=== PATIENT | male | born 1990 | race Caucasian/White ===

== ENCOUNTER → 2020-12-19 15:27 | Outpatient (BNVA) | payer OTHER, SELFPAY | PROVIDERS: Referring Provider Nurse Practitioner Family; Visit Provider Internal Medicine | DX: E03.9 Hypothyroidism, unspecified (principal); E10.65 Type 1 diabetes mellitus with hyperglycemia; E16.0 Drug-induced hypoglycemia without coma; T38.3X5A Adverse effect of insulin and oral hypoglycemic [antidiabetic] drugs, initial encounter | CPT/HCPCS: 99205 ==

== ENCOUNTER → 2021-09-27 15:24 | Outpatient (BNVA) | payer OTHER, SELFPAY | PROVIDERS: PCP Nurse Practitioner Family; Visit Provider Internal Medicine | DX: E10.65 Type 1 diabetes mellitus with hyperglycemia (principal); E03.9 Hypothyroidism, unspecified; E16.0 Drug-induced hypoglycemia without coma; T38.3X5A Adverse effect of insulin and oral hypoglycemic [antidiabetic] drugs, initial encounter; Z79.4 Long term (current) use of insulin | CPT/HCPCS: 99214 ==

== ENCOUNTER 2021-09-27 15:59 | Outpatient (CLI) | payer OTHER, SELFPAY ==
[2021-09-27 16:47] LABS: Estmated Average Glucose 189; Hemoglobin A1C 8.2 % (4.0-6.0)
[2021-09-27 17:36] LABS: Alanine Aminotransferase 87 U/L (0-41); Albumin Level 4.1 g/dL (3.5-5.2); Alkaline Phosphatase 88 IU/L (40-130); Anion Gap 14.8 (5-19); Aspartate Amino Transferase 50 U/L (0-40); Blood Urea Nitrogen 18 mg/dL (6-20); Calcium 8.6 mg/dL (8.5-10.5); Carbon Dioxide 27 mmol/L (22-29); Chloride 103 mmol/L (98-107); Chol HDL Ratio 2.75 mg/dL (1.0-5.00); Cholesterol 179 mg/dL (0-200); Globulin 2.6 g/dL (1.3-4.6); Glomerular Filtration Rate 98.4 mL/min (90-130); Glucose 54 mg/dL (65-115); HDL Cholesterol 65 mg/dL (60-100); LDL Cholesterol Calculated 87 mg/dL (50-129); LDL HDL Ratio 1.34 RATIO (0.00-3.22); Osmolality Calculated 291 mOsm/kg (285-295); Potassium 3.8 mmol/L (3.5-5.1); Sodium 141 mmol/L (136-145); Thyroid Stimulating Hormone 8.91 uIU/mL (0.27-4.20); Total Bilirubin 0.2 mg/dL (0.15-1.2); Total Protein 6.7 g/dL (6.6-8.7); Triglycerides 134 mg/dL (0-150)
[2021-09-27 19:52] LABS: Free T4 Free Thyroxine 0.86 ng/dL (0.82-1.77)
== END 2021-09-27 16:00 | disposition home or self-care (01) ==
PROVIDERS: PCP Nurse Practitioner Family; Visit Provider Internal Medicine
DX: E03.9 Hypothyroidism, unspecified (principal); E10.65 Type 1 diabetes mellitus with hyperglycemia
CPT/HCPCS: 80053; 80061; 83036; 84439; 84443

== ENCOUNTER → 2021-10-11 18:15 | Outpatient (BNVA) | payer OTHER, SELFPAY | PROVIDERS: Visit Provider Registered Nurse Neonatal Intensive Care | DX: M79.641 Pain in right hand (principal); W22.09XA Striking against other stationary object, initial encounter | CPT/HCPCS: 73130 ==

== ENCOUNTER → 2021-10-17 10:51 | Outpatient (BNVA) | payer OTHER, SELFPAY | PROVIDERS: Referring Provider Registered Nurse Neonatal Intensive Care; Visit Provider Physician Assistant | DX: S92.321D Displaced fracture of second metatarsal bone, right foot, subsequent encounter for fracture with routine healing (principal); X58.XXXD Exposure to other specified factors, subsequent encounter | CPT/HCPCS: 73130 ==

== ENCOUNTER 2021-10-17 14:40 | Outpatient (CLI) | payer OTHER, SELFPAY | END 2021-10-17 14:41 | disposition home or self-care (01) | LOC: SPT 14:43 | PROVIDERS: Visit Provider Physician Assistant | DX: Z46.89 Encounter for fitting and adjustment of other specified devices (principal); S62.339A Displaced fracture of neck of unspecified metacarpal bone, initial encounter for closed fracture; X58.XXXA Exposure to other specified factors, initial encounter | CPT/HCPCS: 97760; L3807 ==

== ENCOUNTER → 2021-10-19 15:30 | Outpatient (BNVA) | payer OTHER, SELFPAY | PROVIDERS: Visit Provider Nurse Practitioner Family | DX: Z20.822 Contact with and (suspected) exposure to COVID-19 (principal); R68.89 Other general symptoms and signs | CPT/HCPCS: 87400; 87635 ==

== ENCOUNTER → 2021-11-14 15:51 | Outpatient (BNVA) | payer OTHER, SELFPAY | PROVIDERS: Visit Provider Physician Assistant | DX: S62.300A Unspecified fracture of second metacarpal bone, right hand, initial encounter for closed fracture (principal); X58.XXXA Exposure to other specified factors, initial encounter | CPT/HCPCS: 73130 ==

== ENCOUNTER 2021-11-29 06:00 | Outpatient (RCR) | payer OTHER, SELFPAY | END 2021-12-11 23:59 | disposition home or self-care (01) | LOC: TOT 06:00 | PROVIDERS: Referring Provider Physician Assistant; Visit Provider Physician Assistant | DX: S62.600D Fracture of unspecified phalanx of right index finger, subsequent encounter for fracture with routine healing (principal) | CPT/HCPCS: 97110; 97165; 97530 ==

== ENCOUNTER 2021-12-12 06:00 | Outpatient (RCR) | payer OTHER, SELFPAY | END 2022-01-08 23:59 | disposition home or self-care (01) | LOC: TOT 06:00 | PROVIDERS: Referring Provider Physician Assistant; Visit Provider Physician Assistant | DX: S62.600D Fracture of unspecified phalanx of right index finger, subsequent encounter for fracture with routine healing (principal) | CPT/HCPCS: 97530 ==

== ENCOUNTER 2022-01-09 06:00 | Outpatient (RCR) | payer OTHER, SELFPAY | END 2022-02-08 23:59 | disposition home or self-care (01) | LOC: TOT 06:00 | PROVIDERS: Referring Provider Physician Assistant; Visit Provider Physician Assistant | DX: S62.600D Fracture of unspecified phalanx of right index finger, subsequent encounter for fracture with routine healing (principal); X58.XXXD Exposure to other specified factors, subsequent encounter | CPT/HCPCS: 97168 ==

== ENCOUNTER → 2023-05-03 12:26 | Outpatient (BNVA) | payer SELFPAY | PROVIDERS: PCP Nurse Practitioner Family; Visit Provider Nurse Practitioner Family | DX: E10.65 Type 1 diabetes mellitus with hyperglycemia (principal) | CPT/HCPCS: 80053; 80061; 82043; 83036; 84439; 84443; 85025 ==

== ENCOUNTER 2023-08-29 00:30 | Emergency (ER) | payer SELFPAY ==
[2023-08-29 00:35] VITALS: BP 137/88; PULSE 60; RESP 20; TEMP 36.6; O2SAT 98; BMI 27.3
--- NOTE | 2023-08-29 00:39 | ED_ITS ---
HPI - Abdominal Pain General: Chief Complaint: Abdominal Pain Stated Complaint: ABD Pain Possible Hernia Time Seen by Provider: 08/29/23 00:31 Source: patient Mode of arrival: ambulatory Limitations: no limitations History of Present Illness: 32-year-old male states he is lifting at work on Saturday like he may have pulled a muscle got a hernia he states since then he has had some pain around his umbilicus states pain increased this evening states its worse with movement and palpation he states at rest pain is minimal he states pain is currently 2 out of 10 denies any vomiting or diarrhea Associated Symptoms: Denies chills, diarrhea, dysuria, fever(s), nausea and vomiting Review of Systems Const: Denies: fever(s), chills, body aches or change in appetite ENMT: Denies: throat pain or dental pain Card: Denies: chest pain Resp: Denies: dyspnea GI: Reports: abdominal pain; Denies: nausea, vomiting or diarrhea : Denies: dysuria Musc: Denies: neck pain or back pain Skin/Breast: Denies: rash Neuro: Denies: headache(s) PFSH ED PFSH: Medical History Cholecystectomy planned Diabetes type I History of cholelithiasis Hypothyroid Family History Mother Hypothyroidism Grandmother Hypothyroidism Other Cancer Social History Smoking and tobacco/nicotine status: never used tobacco/nicotine Second hand smoke exposure: No Alcohol intake: current Alcohol intake frequency: holidays/special occasions only Substance/Drug Use: never Marital status: Single Special mike needs: Yes (no blood products) Agree to transfusion: No Physical Exam Const: COMMON NORMALS: no acute distress, patient oriented x3 and healthy appearing HENMT: COMMON NORMALS: normocephalic and atraumatic HEAD & SCALP: normocephalic and atraumatic Neck/C-Spine: COMMON NORMALS: full ROM and supple Chest: COMMONS NORMALS: normal inspection of the chest Resp: COMMON NORMALS: normal respiratory effort Cardio: COMMON NORMALS: regular rate RATE: regular rate GI: COMMON NORMALS: Normal to inspection, nondistended, normoactive bowel sounds present, Soft to palpation and no masses PALPATION: Yes Soft to palpation OTHER: Slight tenderness umbilicus no obvious hernia Extremity: COMMON NORMALS: normal to inspection and full ROM Neuro: COMMON NORMALS: patient oriented x3, moves all extremities and no focal motor deficits Psych: COMMON NORMALS: mental status grossly normal, Normal thought process present and cooperative THOUGHT PROCESS: Normal thought process present Skin: COMMON NORMALS: no rashes or lesions noted and no wounds GENERAL SKIN EXAM: no rashes or lesions noted Course Vital Signs: Vital signs: Vital Signs Temperature 97.9 F 08/29/23 00:35 Pulse Rate 60 08/29/23 01:08 Respiratory Rate 20 H 08/29/23 00:35 Blood Pressure 114/73 08/29/23 01:08 Pulse Oximetry 96 08/29/23 01:08 Oxygen Delivery Me thod Room Air 08/29/23 01:08 MDM - Abdominal Pain Medical Decision Making Patient presents with abdominal pain exam here is benign no signs of hernia noted no tenderness right lower quadrant no signs of appendicitis blood works normal likely muscle strain he is to follow-up with his PCP return if worsening he understands agrees to plan Differential Diagnosis Likely abdominal pain Medical Records I reviewed the patient's medical records. Lab Data I reviewed the patient's lab results. 08/29/23 00:41 08/29/23 00:41 Labs/Radiology: Laboratory Results WBC 7.86 10^3/uL (3.29-11.43) 08/29/23 00:41 RBC 4.91 10^6/uL (3.85-5.65) 08/29/23 00:41 Hgb 14.80 g/dL (11.27-16.99) 08/29/23 00:41 Hct 43.7 % (37-53) 08/29/23 00:41 MCV 89.0 fl (82-101) 08/29/23 00:41 MCH 30.1 pg (27-33) 08/29/23 00:41 MCHC 33.9 g/dL (30-55) 08/29/23 00:41 RDW 12.3 % (12.1-15.1) 08/29/23 00:41 Plt Count 206 10^3/cmm (157-399) 08/29/23 00:41 MPV 9.8 fL (7.4-10.4) 08/29/23 00:41 Neut % (Auto) 51.8 % 08/29/23 00:41 Lymph % (Auto) 39.9 % 08/29/23 00:41 [place] % (Auto) 6.9 % 08/29/23 00:41 Eos % (Auto) 0.8 % 08/29/23 00:41 Baso % (Auto) 0.3 % 08/29/23 00:41 Neut # (Auto) 4.08 10^3/uL (1.8-7.7) 08/29/23 00:41 Lymph # (Auto) 3.1 10^3/uL (0.8-4.8) 08/29/23 00:41 [place] # (Auto) 0.5 10^3/uL (0.2-0.9) 08/29/23 00:41 Eos # (Auto) 0.1 10^3/uL (0.0-0.8) 08/29/23 00:41 Baso # (Auto) 0.0 10^3/uL (0.0-0.1) 08/29/23 00:41 Nucleated RBC % (auto) 0 % 08/29/23 00:41 Nucleated RBCs # 0.0 /100WBC 08/29/23 00:41 Sodium 138 mmol/L (136-145) 08/29/23 00:41 Potassium 4.4 mmol/L (3.5-5.1) 08/29/23 00:41 Chloride 101 mmol/L (98-107) 08/29/23 00:41 Carbon Dioxide 28 mmol/L (22-29) 08/29/23 00:41 Anion Gap 13.4 (5-19) 08/29/23 00:41 BUN 17 mg/dL (6-20) 08/29/23 00:41 Creatinine 0.8 mg/dL (0.7-1.2) 08/29/23 00:41 GFR Calculation 111.3 mL/min (90-130) 08/29/23 00:41 Glucose 306 mg/dL (65-115) H 08/29/23 00:41 Calculated Osmolality 299 mOsm/kg (285-295) H 08/29/23 00:41 Calcium 9.7 mg/dL (8.5-10.5) 08/29/23 00:41 Total Bilirubin 0.3 mg/dL (0.15-1.2) 08/29/23 00:41 AST 38 U/L (0-40) 08/29/23 00:41 ALT 90 U/L (0-41) H 08/29/23 00:41 Alkaline Phosphatase 91 U/L (40-130) 08/29/23 00:41 Total Protein 7.1 g/dL (6.6-8.7) 08/29/23 00:41 Albumin 4.4 g/dL (3.5-5.2) 08/29/23 00:41 Globulin 2.7 g/dL (1.3-4.6) 08/29/23 00:41 Lipase 16 U/L (13-60) 08/29/23 00:41 No radiology studies performed this visit Discharge Plan Discharge Patient Disposition: Home Clinical Impression: Abdominal pain Condition: Stable Prescriptions: No Action (DME) FreeStyle [place] 2 [place] Misc See Rx Instructions .ROUTE .MEDSUPPLY Qty: 1 0RF Rx Instructions: As directed (DME) Novofine Autocover 30 gauge x 1/3 needle See Rx Instructions .Route Qty: 100 4RF Rx Instructions: As directed insulin aspart U-100 [Novolog FlexPen U-100 Insulin] 100 unit/mL (3 mL) insulin pen 10 unit SUBCUT TID 30 Days Qty: 15 2RF (DME) FreeStyle [place]elo 2 Sensor Kit See Rx Instructions .ROUTE .MEDSUPPLY Qty: 6 3RF Rx Instructions: Change every 14 days. Toujeo Max U-300 SoloStar 300 unit/mL (3 mL) insulin pen 25 unit SUBCUT BID 30 Days Qty: 4.998 2RF levothyroxine 25 mcg tablet 25 mcg PO DAILY Qty: 90 0RF Discharge Orders: Discharge ED (Routine); Ordered 08/29/23 Ordered By: Kia Cheatham Referrals: Minnie Brown FNP [Primary Care Provider] - 1-3 days Discharge Diet: Advance as tolerated Discharge Activity: Resume usual activity Patient Instructions: Abdominal Pain (ED) Coding Level of Care Code ED Substation Designer for Nina Alvarez
[2023-08-29 00:47] LABS: Basophils % 0.3 %; Eosinophils # 0.1 10^3/uL (0.0-0.8); Eosinophils % 0.8 %; Hematocrit 43.7 % (37-53); Lymphocytes # 3.1 10^3/uL (0.8-4.8); Lymphocytes % 39.9 %; Mean Corpuscular HGB Conc 33.9 g/dL (30-55); Mean Corpuscular Hemoglobin 30.1 pg (27-33); Mean Platelet Volume 9.8 fL (7.4-10.4); Monocytes # 0.5 10^3/uL (0.2-0.9); Monocytes % 6.9 %; Neutrophils # 4.08 10^3/uL (1.8-7.7); Neutrophils % 51.8 %; Nucleated Red Blood Cells % 0 %; Platelet Count 206 10^3/cmm (157-399); Red Blood Count 4.91 10^6/uL (3.85-5.65); Red Cell Distribution Width 12.3 % (12.1-15.1); White Blood Count 7.86 10^3/uL (3.29-11.43)
[2023-08-29 01:04] LABS: Alanine Aminotransferase 90 U/L (0-41); Albumin Level 4.4 g/dL (3.5-5.2); Alkaline Phosphatase 91 U/L (40-130); Anion Gap 13.4 (5-19); Aspartate Amino Transferase 38 U/L (0-40); Blood Urea Nitrogen 17 mg/dL (6-20); Calcium 9.7 mg/dL (8.5-10.5); Carbon Dioxide 28 mmol/L (22-29); Chloride 101 mmol/L (98-107); Creatinine Clr Calc Pharmacy 149.9887; Globulin 2.7 g/dL (1.3-4.6); Glomerular Filtration Rate 111.3 mL/min (90-130); Glucose 306 mg/dL (65-115); Lipase 16 U/L (13-60); Osmolality Calculated 299 mOsm/kg (285-295); Potassium 4.4 mmol/L (3.5-5.1); Sodium 138 mmol/L (136-145); Total Bilirubin 0.3 mg/dL (0.15-1.2); Total Protein 7.1 g/dL (6.6-8.7)
[2023-08-29 01:08] VITALS: BP 114/73; PULSE 60; O2SAT 96
[2023-08-29 01:17] VITALS: BP 114/63; PULSE 52; RESP 14; O2SAT 99
== END 2023-08-29 01:21 | disposition home or self-care (01) ==
PROVIDERS: Emergency Provider Emergency Medicine; PCP Nurse Practitioner Family
DX: R10.33 Periumbilical pain (principal); E10.9 Type 1 diabetes mellitus without complications; Z79.4 Long term (current) use of insulin
CPT/HCPCS: 80053; 83690; 85025; 99283

== ENCOUNTER 2025-01-10 12:46 | Observation (INO) | payer SELFPAY ==
[2025-01-10] VITALS (83 sets, daily range): BP systolic 101–139; BP diastolic 61–94; PULSE 61–101; RESP 7–24; TEMP 36.2–37.1; O2SAT 90–98; BMI 25.1; BMI 25.2
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
[2025-01-10] MEDS: iohexol 350 mg/mL 500 mL Btl (per mL) IV (13:36)
[2025-01-10 15:24] LABS: Basophils % 0.2 %; Eosinophils % 0.6 %; Hematocrit 42.5 % (37-53); Lymphocytes # 1.7 10^3/uL (0.8-4.8); Mean Corpuscular HGB Conc 34.4 g/dL (30-55); Mean Corpuscular Hemoglobin 30.6 pg (27-33); Mean Corpuscular Volume 89.1 fl (82-101); Mean Platelet Volume 10.1 fL (7.4-10.4); Monocytes # 0.3 10^3/uL (0.2-0.9); Monocytes % 6.7 %; Neutrophils % 56.3 %; Nucleated Red Blood Cells % 0 %; Platelet Count 258 10^3/cmm (157-399); Red Blood Count 4.77 10^6/uL (3.85-5.65); Red Cell Distribution Width 12.2 % (12.1-15.1)
[2025-01-10 15:37] LABS: Alanine Aminotransferase 36 U/L (0-41); Albumin Level 4.1 g/dL (3.5-5.2); Alkaline Phosphatase 93 U/L (40-130); Anion Gap 14.1 (5-19); Aspartate Amino Transferase 35 U/L (0-40); Blood Urea Nitrogen 10 mg/dL (6-20); Calcium 9.4 mg/dL (8.5-10.5); Carbon Dioxide 26 mmol/L (22-29); Chloride 100 mmol/L (98-107); Creatinine Clr Calc Pharmacy 113.5149; Globulin 2.6 g/dL (1.3-4.6); Glucose 205 mg/dL (65-115); Osmolality Calculated 287 mOsm/kg (285-295); Potassium 4.1 mmol/L (3.5-5.1); Sodium 136 mmol/L (136-145); Total Bilirubin 0.5 mg/dL (0.15-1.2); Total Protein 6.7 g/dL (6.6-8.7)
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
[2025-01-10] MEDS: dexamethasone 4 mg/mL INJ 8 MG IVP (16:54)
[2025-01-10 18:09] LABS: Glucose Point of Care 138 mg/dL (70-110)
[2025-01-10] MEDS: dexamethasone 10 mg/mL INJ 6 MG IVP (18:10)
[2025-01-10] MEDS: acetaminophen 325 mg Tablet 650 MG PO (19:27)
--- NOTE | 2025-01-10 19:33 | PC.NURSE ---
Some edema/swelling noted on the right side of the patient's neck. Area is tender to touch. Respirations even, nonlabored, normal rate; patient does not endorse any difficulty breathing.
[2025-01-10 20:08] LABS: Glucose Point of Care 276 mg/dL (70-110)
[2025-01-10] MEDS: insulin lispro 100 unit/1 mL SUBCUT (20:12)
[2025-01-11] VITALS (103 sets, daily range): BP systolic 90–127; BP diastolic 59–68; PULSE 66–102; RESP 0–27; TEMP 37.2; O2SAT 93–97
[2025-01-11] MEDS: dexamethasone 10 mg/mL INJ 6 MG IVP ×2 (01:21→08:11)
[2025-01-11 01:35] LABS: Glucose Point of Care 88 mg/dL (70-110)
[2025-01-11 03:15] LABS: Glucose Point of Care 143 mg/dL (70-110)
[2025-01-11] MEDS: levothyroxine 50 mcg Tablet PO (06:23)
[2025-01-11] MEDS: acetaminophen 325 mg Tablet 650 MG PO (06:23)
[2025-01-11 06:29] LABS: Glucose Point of Care 243 mg/dL (70-110)
[2025-01-11 07:33] LABS: Glucose Point of Care 291 mg/dL (70-110)
[2025-01-11] MEDS: sennosides 8.6 mg Tablet 17.2 MG PO (08:12)
[2025-01-11] MEDS: insulin lispro 100 unit/1 mL SUBCUT (08:13)
[2025-01-11] MEDS: insulin glargine 100 units/1 mL 25 UNIT SUBCUT (08:19)
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
[2025-01-11 10:28] LABS: Basophils % 0.1 %; Lymphocytes # 1.3 10^3/uL (0.8-4.8); Lymphocytes % 6.1 %; Mean Corpuscular HGB Conc 33.5 g/dL (30-55); Mean Corpuscular Hemoglobin 30.1 pg (27-33); Mean Platelet Volume 9.7 fL (7.4-10.4); Monocytes # 0.7 10^3/uL (0.2-0.9); Monocytes % 3.2 %; Neutrophils # 19.77 10^3/uL (1.8-7.7); Nucleated Red Blood Cells % 0 %; Platelet Count 272 10^3/cmm (157-399); Red Blood Count 4.78 10^6/uL (3.85-5.65); Red Cell Distribution Width 12.1 % (12.1-15.1); White Blood Count 21.95 10^3/uL (3.29-11.43)
[2025-01-11 11:02] LABS: Estmated Average Glucose 171; Hemoglobin A1C 7.6 % (4.0-6.0)
[2025-01-11 11:15] LABS: Alanine Aminotransferase 29 U/L (0-41); Albumin Level 3.7 g/dL (3.5-5.2); Alkaline Phosphatase 93 U/L (40-130); Anion Gap 14.2 (5-19); Aspartate Amino Transferase 21 U/L (0-40); Blood Urea Nitrogen 15 mg/dL (6-20); Calcium 8.9 mg/dL (8.5-10.5); Carbon Dioxide 23 mmol/L (22-29); Chloride 99 mmol/L (98-107); Chol HDL Ratio 2.95 mg/dL (1.0-5.00); Cholesterol 171 mg/dL (0-200); Globulin 2.3 g/dL (1.3-4.6); Glucose 326 mg/dL (65-115); HDL Cholesterol 58 mg/dL (60-100); Iron 79 ug/dL (59-158); LDL Cholesterol Calculated 104 mg/dL (50-129); Osmolality Calculated 287 mOsm/kg (285-295); Percent Saturation 35.4 % (20-50); Potassium 4.2 mmol/L (3.5-5.1); Sodium 132 mmol/L (136-145); Thyroid Stimulating Hormone 3.25 uIU/mL (0.27-4.20); Total Bilirubin 0.5 mg/dL (0.15-1.2); Total Iron Binding Capacity 223 mcg/dl; Triglycerides 44 mg/dL (0-150); Unsaturated Iron Binding 144 ug/dL (112-347); VLDL Cholestrol Calculation 9 mg/dL (0-30); Vitamin B12 1947 pg/mL (232-1245)
--- NOTE | 2025-01-11 11:34 | PC.NURSE ---
Discharge education provided by PATRICK Stovall.
== END 2025-01-11 11:05 | disposition home or self-care (01) ==
LOC: ER 16:50 → ICU 17:23
PROVIDERS: Admitting Provider Internal Medicine; Emergency Provider Emergency Medicine; PCP Nurse Practitioner Family; Visit Provider Student in an Organized Health Care Education/Training Program
DX: S12.8XXA Fracture of other parts of neck, initial encounter (principal); E10.65 Type 1 diabetes mellitus with hyperglycemia; E03.9 Hypothyroidism, unspecified; R13.10 Dysphagia, unspecified; R07.81 Pleurodynia; Z79.4 Long term (current) use of insulin; Z79.890 Hormone replacement therapy; Y93.75 Activity, martial arts; X58.XXXA Exposure to other specified factors, initial encounter; Z88.8 Allergy status to other drugs, medicaments and biological substances
CPT/HCPCS: 36415; 36416; 70498; 71100; 80053; 80061; 82607; 82962; 83036; 83540; 83550; 84443; 85025; 96372; 96374; 96376; 99285; G0378; J1100; J1815